=== PATIENT | female | born 1970 | race Two or more races ===

== ENCOUNTER 2024-01-06 07:30 | Emergency (ER) | payer OTHER ==
[~2024-01-06] VITALS: Ht 157.5 cm; Wt 62.6 kg
[2024-01-06] MEDS ORDERED: DEXAMETHASONE SODIUM PHOSPHATE 4 MG/ML VIAL IV STA (08:30)
== END 2024-01-06 09:30 | disposition home or self-care (01) ==
LOC: ER 07:32
DX: S60.454A Superficial foreign body of right ring finger, initial encounter (principal); W45.8XXA Other foreign body or object entering through skin, initial encounter; Y93.89 Activity, other specified; Y92.89 Other specified places as the place of occurrence of the external cause; Y99.9 Unspecified external cause status